=== PATIENT | male | born 1955 | race Caucasian/White ===

== ENCOUNTER 2021-03-10 17:07 | Inpatient (IN) | payer MEDICARE, OTHER ==
[~2021-03-10] VITALS: Ht 170.2 cm; Wt 68.5 kg
[~2021-03-10 17:07] MED LIST: RANEXA500 MG PO
[2021-03-10 17:52] LABS: BASOPHIL 0.2 % (0-2); EOSINOPHIL 0 % (0-7); HCT 47.9 % (42.0-52.0); HGB 16.2 g/dl (13.2-18.0); LYMPHOCYTE 23.8 % (15-48); MCH 29.9 pg (25.0-31.0); MCHC 33.8 g/dL (32.0-36.0); MCV 88.4 fL (78.0-100.0); MONOCYTE 5.3 % (0-12); MPV 11.2 fL (6.0-9.5); NRBC 0; PLT 105 K/uL (150-400); RBC 5.42 M/uL (4.70-6.00); RDW 14.2 % (11.5-14.0); WBC 4.5 K/uL (4.0-10.5)
[2021-03-10 18:16] LABS: LACTIC ACID 1.9 mmol/L (0.4-1.9)
[2021-03-10 18:17] LABS: INR 0.99 (0.9-1.2); PROTHROMBIN TIME 12.5 SECONDS (11.8-13.4); PTT 29.1 SECONDS (24.4-34.7)
[2021-03-10 18:18] LABS: D-DIMER < 0.27 ug/mLFEU (0.00-0.41)
[2021-03-10 18:22] LABS: ALBUMIN 3.1 g/dL (3.4-5.0); BILIRUBIN - TOTAL 0.5 mg/dL (0.2-1.0); BUN/CREAT RATIO (CALC) 15.3 RATIO; C-REACTIVE PROTEIN 7.2 mg/dL (<=0.90); CREATININE 1.44 mg/dL (0.67-1.17); GLOBULIN (CALCULATION) 3.9 g/dL; POTASSIUM 4.3 mmol/L (3.5-5.1)
[2021-03-10 18:24] LABS: PRO-BNP 275 pg/mL (<125)
--- NOTE | 2021-03-10 21:34 | NUR ---
PATIENT ARRIVED TO FLOOR AT 2044, ALERT AND ORIENTED ABLE TO MAKE NEEDS KNOWNM. CURRENTLY ON CARDIZEM DRIP AT 10MLS HR. BED IN LOW POSITION CALL LIGHT IN REACH.
[2021-03-10] MEDS ORDERED: SYNTHROID25 MCG PO (23:25)
[2021-03-10] MEDS ORDERED: ATENOLOL25 MG PO (23:25)
[2021-03-10] MEDS ORDERED: PRINIVIL20 MG PO (23:26)
[2021-03-10] MEDS ORDERED: PRINIVIL10 MG PO (23:27)
[2021-03-10] MEDS ORDERED: PRILOSEC20 MG PO (23:28)
[2021-03-10] MEDS ORDERED: PLAVIX75 MG PO (23:28)
[2021-03-10] MEDS ORDERED: COLCRYS0.6 MG PO (23:29)
[2021-03-10] MEDS ORDERED: LIPITOR20 MG PO (23:29)
[2021-03-10] MEDS ORDERED: NORVASC5 MG PO (23:30)
[2021-03-10] MEDS ORDERED: METFORMIN HCL500 MG PO (23:33)
[2021-03-11 02:19] LABS: BILIRUBIN NEGATIVE (NEGATIVE); BLOOD TRACE-INTACT Ery/uL (NEGATIVE); CLARITY CLEAR (CLEAR); COLOR YELLOW (YELLOW); GLUCOSE (U) NORMAL (NORMAL); LEUKOCYTES NEGATIVE Leu/uL (NEGATIVE); NITRITE NEGATIVE (NEGATIVE); PROTEIN 2+ mg/dL (NEGATIVE); SPECIFIC GRAVITY 1.025 (1.001-1.030); UROBILINOGEN 0.2 mg/dL (0.2-1.0)
[2021-03-11 02:27] LABS: AMORPHOUS URATES CRYSTALS TRACE
[2021-03-11 06:21] LABS: BASOPHIL 0 % (0-2); EOSINOPHIL 0 % (0-7); HCT 51.5 % (42.0-52.0); HGB 16.8 g/dl (13.2-18.0); LYMPHOCYTE 26.7 % (15-48); MCH 29.8 pg (25.0-31.0); MCHC 32.6 g/dL (32.0-36.0); MCV 91.3 fL (78.0-100.0); MONOCYTE 3.3 % (0-12); MPV 12.1 fL (6.0-9.5); NEUTROPHIL 68.4 % (41-80); NRBC 0; PLT 102 K/uL (150-400); RBC 5.64 M/uL (4.70-6.00); RDW 14.5 % (11.5-14.0)
[2021-03-11 06:22] LABS: WBC 2.4 K/uL (4.0-10.5)
[2021-03-11 07:55] LABS: ALBUMIN 2.8 g/dL (3.4-5.0); BILIRUBIN - TOTAL 0.4 mg/dL (0.2-1.0); BUN/CREAT RATIO (CALC) 16.8 RATIO; CREATININE 1.25 mg/dL (0.67-1.17); GLOBULIN (CALCULATION) 4.5 g/dL; POTASSIUM 4.8 mmol/L (3.5-5.1); TOTAL PROTEIN 7.3 g/dL (6.4-8.2)
[2021-03-12 03:57] LABS: BASOPHIL 0.2 % (0-2); EOSINOPHIL 0 % (0-7); HCT 46.9 % (42.0-52.0); HGB 15.4 g/dl (13.2-18.0); LYMPHOCYTE 15.9 % (15-48); MCH 29.4 pg (25.0-31.0); MCHC 32.8 g/dL (32.0-36.0); MCV 89.5 fL (78.0-100.0); MONOCYTE 6.1 % (0-12); MPV 12.2 fL (6.0-9.5); NEUTROPHIL 76.6 % (41-80); NRBC 0; PLT 133 K/uL (150-400); RBC 5.24 M/uL (4.70-6.00); RDW 14.3 % (11.5-14.0)
[2021-03-12 03:58] LABS: WBC 4.3 K/uL (4.0-10.5)
[2021-03-12 04:26] LABS: ALBUMIN 2.8 g/dL (3.4-5.0); BILIRUBIN - TOTAL 0.4 mg/dL (0.2-1.0); BUN/CREAT RATIO (CALC) 28.6 RATIO; CREATININE 1.05 mg/dL (0.67-1.17); GLOBULIN (CALCULATION) 4.2 g/dL; POTASSIUM 4.4 mmol/L (3.5-5.1)
[2021-03-12] MEDS ORDERED: LOPRESSOR25 MG PO (12:03)
[2021-03-12] MEDS ORDERED: PLAVIX75 MG PO (12:03)
== END 2021-03-12 15:00 | disposition home or self-care (01) | DRG 177 ==
LOC: FER 17:07 → FTCU 19:43
PROVIDERS: Internal Medicine; Nurse Practitioner; ADMIT Internal Medicine
PROC: XW033E5 Introduction of Remdesivir Anti-infective into Peripheral Vein, Percutaneous Approach, New Technology Group 5 (ICD-10-PCS; principal; 2021-03-10)
PROC: 8E0ZXY6 Isolation (ICD-10-PCS; 2021-03-10)
PROC: XW0DXM6 Introduction of Baricitinib into Mouth and Pharynx, External Approach, New Technology Group 6 (ICD-10-PCS; 2021-03-10)
DX: U07.1 COVID-19 (principal); J12.82 Pneumonia due to coronavirus disease 2019; J96.01 Acute respiratory failure with hypoxia; I48.91 Unspecified atrial fibrillation; I25.10 Atherosclerotic heart disease of native coronary artery without angina pectoris; E11.9 Type 2 diabetes mellitus without complications; I10 Essential (primary) hypertension; E78.5 Hyperlipidemia, unspecified; Z79.02 Long term (current) use of antithrombotics/antiplatelets; Z79.890 Hormone replacement therapy; Z79.84 Long term (current) use of oral hypoglycemic drugs; Z79.899 Other long term (current) drug therapy; Z95.1 Presence of aortocoronary bypass graft; Z98.890 Other specified postprocedural states; Z80.9 Family history of malignant neoplasm, unspecified; Z82.0 Family history of epilepsy and other diseases of the nervous system
CPT/HCPCS: 36415; 36600; 71045; 80053; 81001; 82728; 82803; 83605; 83735; 83880; 84145; 84443; 84484; 85025; 85379; 85610; 85730; 86140; 87040; 93005; 94010; 94640; 94760; C9399; J1100; J1650; J7030; J7050; J8540; U0002